=== PATIENT | female | born 1975 | race Caucasian/White ===

== ENCOUNTER → 2018-06-10 | Outpatient (CLI) | payer OTHER ==
--- NOTE | 2018-06-10 17:48 | Diagnostic Imaging Report ---
History: Forget fullness Comparison studies: None Technique: Sagittal T2; axial DWI, FLAIR, MPGR, T1, Coronal FLAIR. Intravenous contrast: None Findings: Scalp: Normal in signal . No masses . Bone marrow: Normal in signal intensity. Extra-axial: No masses or fluid collections. Brain sulci: Appropriate for age. Ventricles: Normal in size . No hydrocephalus . Parenchyma: No abnormal signal intensities. No masses, hemorrhage, acute or chronic cortical ischemic insults. Suprasellar region: No abnormalities. Craniocervical junction: No abnormalities. Patent foramen magnum. No Chiari one malformation. Vessels: Normal flow-voids in the arteries and sinuses. Incidental T2 hyperintense inflammatory changes in several right mastoid air cells. IMPRESSION: No abnormalities. Signed by: Dr. Giancarlo Salomon M.D. on 06/10/2018 5:45 PM
== END ==
LOC: MRI 15:56
PROVIDERS: ATTEND Family Medicine
DX: S09.90XA Unspecified injury of head, initial encounter (principal)
CPT/HCPCS: 70551

== ENCOUNTER 2019-06-09 14:21 | Observation (INO) | payer OTHER ==
[~2019-06-09] VITALS: Ht 157.5 cm; Wt 49.9 kg
--- OUTSIDE RECORDS SUMMARY | 2019-06-09 14:24 | XMS REPORT ---
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 Allergies, Adverse Reactions, Alerts This patient has no known allergies or adverse reactions. Medications This patient has no known medications. Results Test Description Test Time Test Comments Text Results Atomic Results Result Comments MRI BRAIN WO 2018-06-10 17:43:00 [place] [address] Patient Name: RICHA GIBBS MR #: [id number] : 1975 Age/Sex: 42/F Req #: [id number] Adm Physician: Ordered by: GISSELLE DA SILVA DO Report #: [id number] Location: MRI Room/Bed: Procedure: [id number] MRI/MRI BRAIN WO Exam Date: Exam Time: REPORT STATUS: Signed History: Forget fullness Comparison studies: None Technique: Sagittal T2; axial DWI, FLAIR, MPGR, T1, Coronal FLAIR. Intravenous contrast: None Findings: Scalp: Normal in signal . No masses . Bone marrow: Normal in signal intensity. Extra-axial: No masses or fluid collections. Brain sulci: Appropriate for age. Ventricles: Normal in size . No hydrocephalus . Parenchyma: No abnormal signal intensities. No masses, hemorrhage, acute or chronic cortical ischemic insults. Suprasellar region: No abnormalities. Craniocervical junction: No abnormalities. Patent foramen magnum. No Chiari one malformation. Vessels: Normal flow-voids in the arteries and sinuses. Incidental T2 hyperintense inflammatory changes in several right mastoid air cells. IMPRESSION: No abnormalities. Signed by: Dr. Giancarlo Sy M.D. on 06/10/2018 5:45 PM Dictated By: GIANCARLO BARTLETT MD, MD 42 Transcribed By: PORTER on 06/10/181744 COPY TO: GISSELLE DA SILVA DO
[2019-06-09] MEDS ORDERED: ONDANSETRON HCL INJ 2MG/ML 2ML 2 MG/ML VIAL IV STA (14:27)
[2019-06-09] MEDS ORDERED: SODIUM CHLORIDE 0.9% 1000ML 1,000 ML IV STA (14:27)
[2019-06-09] MEDS ORDERED: FAMOTIDINE 20 MG/2 ML VIAL IV STA (14:27)
--- NOTE | 2019-06-09 14:50 | NUR ---
seizure precautions implemented; bedside railings up x 2 and padded; pt educated to press call button if pt seizes
--- NOTE | 2019-06-09 14:51 | NUR ---
aspiration precautions intiated; pt hob elevated 45 degrees suction set up
[2019-06-09] MEDS ORDERED: LEVETIRACETAM 500MG/5ML VIAL 500 MG in SODIUM CHLORIDE 0.9% 100 ML 100 ML IV SCH ×2 (15:00→16:00)
[2019-06-09 15:20] LABS: BILIRUBIN,URINE NEGATIVE (NEGATIVE); CLARITY,URINE SL CLOUDY (CLEAR); COLOR,URINE YELLOW (YELLOW); KETONES,URINE NEGATIVE (NEGATIVE); LEUKOCYTE ESTERASE ,URINE NEGATIVE (NEGATIVE); NITRITE,URINE NEGATIVE (NEGATIVE); PROTEIN,URINE DIPSTICK 2+ (NEGATIVE); URINE UROBILINOGEN 0.2 mg/dL (0.2 - 1)
[2019-06-09 15:25] LABS: BASOPHILS # (AUTO) 0.1 (0.0-0.1); BASOPHILS % 0.4 % (0.0-1.0); EOSINOPHILS # (AUTO) 0.1 (0.0-0.4); EOSINOPHILS % 0.6 % (0.0-6.0); HEMATOCRIT 41.3 % (34.2-44.1); LYMPHOCYTES # (AUTO) 1.6 (1.0-3.2); LYMPHOCYTES % 11.7 % (18.0-39.1); MEAN CORPUSCULAR HGB CONC 33.9 g/dL (31-35); MEAN CORPUSCULAR VOLUME 91.6 fL (81-99); MONOCYTES # (AUTO) 0.8 (0.2-0.8); NEUTROPHILS # (AUTO) 10.8 (2.1-6.9); NEUTROPHILS % 80.9 % (38.7-80.0); PLATELET COUNT 276 x10e3/uL (140-360); RED BLOOD COUNT 4.51 x10e6/uL (3.6-5.1); RED CELL DISTRIBUTION WIDTH 11.5 % (11.7-14.4)
[2019-06-09 15:27] LABS: AMPHETAMINES SCREEN,URINE POSITIVE (NEGATIVE); BENZODIAZEPINES SCREEN,URINE NEGATIVE (NEGATIVE); PHENCYCLIDINE SCREEN,URINE NEGATIVE (NEGATIVE)
[2019-06-09 15:39] LABS: BACTERIA,URINE MANY /HPF; EPITHELIAL CELLS,URINE MANY /LPF; TRANSITIONAL EPI CELLS,URINE MODERATE; WBC,URINE (MAN) 0-5 /HPF (0-5)
[2019-06-09 15:46] LABS: ALANINE AMINOTRANSFERASE 12 IU/L (0-55); ALBUMIN 4.3 g/dL (3.5-5.0); ALBUMIN/GLOBULIN RATIO 1.6 (0.8-2.0); ALKALINE PHOSPHATASE 35 IU/L (40-150); ANION GAP 17.9 mmol/L (8-16); BLOOD UREA NITROGEN 18 mg/dL (7-26); BUN/CREATININE RATIO 19 (6-25); CALCIUM 9.4 mg/dL (8.4-10.2); CARBON DIOXIDE 19 mmol/L (22-29); CHLORIDE 101 mmol/L (98-107); CREATINE KINASE 103 IU/L (29-168); CREATININE, SERUM 0.95 mg/dL (0.57-1.11); EST GLOMERULAR FILTRATION RATE > 60 ML/MIN (60-); GLUCOSE 144 mg/dL (74-118); POTASSIUM 3.9 mmol/L (3.5-5.1); SODIUM 134 mmol/L (136-145)
--- NOTE | 2019-06-09 15:54 | Diagnostic Imaging Report ---
CT BRAIN WO HISTORY: Syncope COMPARISON: MRI of the brain 06/10/2018 TECHNIQUE: Noncontrast axial scans were obtained from skull base to the vertex. Coronal and sagittal reconstructions obtained from the axial data. One or more of the following dose reduction techniques were used: Automated exposure control, adjustment of the mA and/or kV according to patient size, and/or utilization of iterative reconstruction technique. DISCUSSION: Scalp/Skull: Unremarkable. Brain sulci: Appropriate for patient's age. Ventricles: Normal in size and configuration. No hydrocephalus. Extra-axial spaces: No masses or fluid collections. Parenchyma: No abnormal densities. No mass, hemorrhage, or large vascular territory acute infarct. Dural sinuses: No abnormal densities. Sellar/Suprasellar region: Intact. Skull base: Intact. Incidental findings: Trace right mastoid effusion. IMPRESSION: No intracranial abnormalities. Signed by: Dr. Vinny Tucker M.D. on 06/09/2019 3:51 PM
[2019-06-09] MEDS ORDERED: IBUPROFEN 200 MG TAB PO PRN (16:00)
[2019-06-09] MEDS ORDERED: ACETAMINOPHEN 325 MG TAB PO PRN (16:00)
[2019-06-09] MEDS ORDERED: ZOLPIDEM TARTRATE 5 MG TAB PO PRN (16:00)
[2019-06-09] MEDS ORDERED: ONDANSETRON HCL INJ 2MG/ML 2ML 2 MG/ML VIAL IV PRN (16:00)
[2019-06-09] MEDS ORDERED: DIPHENHYDRAMINE HCL INJ 50 MG/ML VIAL IV PRN (16:00)
[2019-06-09] MEDS ORDERED: IBUPROFEN 400 MG TAB PO PRN (16:15)
[2019-06-09 17:00] VITALS: BP 108/61
--- NOTE | 2019-06-09 17:00 | NUR ---
REC'D PT FROM ER WITH A DX OF SEIZURES. PT BROUGHT UP IN STRETCHER. ASPIRATION AND SEIZURE PRECAUTIONS INITIATED. PADDED SIDE RAILS, SIDE RAILS UP X4, AND HOB ELEVATED AT 45 DEGREES. NO S/S OF DISTRESS. IV TO THE RIGHT AC 18 GAUGE INTACT AND PATENT WITHOUT ANY COMPLICATIONS. FLUIDS RUNNING. BED IN LOWEST POSITION AND CALL ARIAS WITHIN REACH. FAMILY AT THE BEDSIDE.
--- NOTE | 2019-06-09 17:10 | NUR ---
BEDSIDE COMMODE PROVIDED AT THE SIDE OF THE BED.
[2019-06-09 17:32] VITALS: BP 108/61
[2019-06-09] MEDS ORDERED: SODIUM CHLORIDE 0.9% 1000ML 1,000 ML ONE (17:50)
[2019-06-09] MEDS: FAMOTIDINE 20 MG/2 ML VIAL IV SCH (17:57)
--- NOTE | 2019-06-09 19:25 | NUR ---
Patient received lying in bed in a semi-leahy position. Patient appeared drowsy. AAO x 3. Family at bedside. Seizure / Aspiration precautions in place. Bed padded on both sides. Patient assisted to BSC; gait unsteady. Patient safely transferred to bed; bed alarm activated. IVF infusing at 125 cc / hr. Telemetry in place---SR @ 83. Patient/ instructed to call for assistance when needed. Call light within reach.
[2019-06-09 20:00] VITALS: BP 108/53
[2019-06-09 20:55] VITALS: BP 108/53
--- NOTE | 2019-06-09 22:25 | NUR ---
Patient complained of headache ( 05/04). Tylenol 650 mg administered per eMAR. Will continue to monitor.
[2019-06-09] MEDS ORDERED: SERTRALINE HCL100 MG PO (22:38)
[2019-06-09] MEDS ORDERED: LISINOPRIL10 MG PO (22:38)
[2019-06-09] MEDS: SODIUM CHLORIDE 0.9% 1000ML 1,000 ML IV SCH (23:58)
[2019-06-10] VITALS (8 sets, daily range): BP systolic 91–131; BP diastolic 53–62
[2019-06-10] MEDS: LEVETIRACETAM 500MG/5ML VIAL 500 MG in SODIUM CHLORIDE 0.9% 100 ML 100 ML IV SCH ×2 (03:10→14:53)
[2019-06-10 06:34] LABS: BASOPHILS % 0.4 % (0.0-1.0); EOSINOPHILS # (AUTO) 0.1 (0.0-0.4); EOSINOPHILS % 1.2 % (0.0-6.0); LYMPHOCYTES # (AUTO) 1.5 (1.0-3.2); LYMPHOCYTES % 22.2 % (18.0-39.1); MEAN CORPUSCULAR HEMOGLOBIN 30.9 pg (28-32); MEAN CORPUSCULAR HGB CONC 33.3 g/dL (31-35); MEAN CORPUSCULAR VOLUME 92.7 fL (81-99); MONOCYTES # (AUTO) 0.6 (0.2-0.8); MONOCYTES % 9.1 % (4.4-11.3); NEUTROPHILS # (AUTO) 4.6 (2.1-6.9); NEUTROPHILS % 66.7 % (38.7-80.0); PLATELET COUNT 173 x10e3/uL (140-360); RED BLOOD COUNT 3.56 x10e6/uL (3.6-5.1); RED CELL DISTRIBUTION WIDTH 11.5 % (11.7-14.4)
[2019-06-10 06:50] LABS: ANION GAP 9.4 mmol/L (8-16); BLOOD UREA NITROGEN 13 mg/dL (7-26); BUN/CREATININE RATIO 19 (6-25); CARBON DIOXIDE 21 mmol/L (22-29); CHLORIDE 111 mmol/L (98-107); CREATININE, SERUM 0.67 mg/dL (0.57-1.11); EST GLOMERULAR FILTRATION RATE > 60 ML/MIN (60-); GLUCOSE 78 mg/dL (74-118); PHOSPHORUS 2.4 MG/DL (2.3-4.7); POTASSIUM 3.4 mmol/L (3.5-5.1); SODIUM 138 mmol/L (136-145)
[2019-06-10] MEDS: FAMOTIDINE 20 MG/2 ML VIAL IV SCH ×2 (08:21→16:58)
[2019-06-10] MEDS: SODIUM CHLORIDE 0.9% 1000ML 1,000 ML IV SCH ×3 (10:55→22:20)
--- NOTE | 2019-06-10 10:55 | NUR ---
PATIENT OFF THE UNIT PER PADDED BED- PATIENT IN STABLE CONDITION WITH NO S/S OF RESPIRATORY DISTRESS. TELEMETRY REMOVED PER ORDER FOR MRI.
--- NOTE | 2019-06-10 13:39 | NUR ---
PATIENT RESTING IN BED. NO SEIZURES NOTED. PADDING APPLIED TO SIDE RAILS AND HOB. PATIENT REMAINS IN STABLE CONDITION WITH NO S/S OF RESPIRATORY DISTRESS. BED ALARM ON. PATIENT'S MOTHER PRESENT AT BEDSIDE.
--- NOTE | 2019-06-10 14:28 | Diagnostic Imaging Report ---
History: Seizures, altered mental status Comparison studies: Head CT 06/09/2019 and brain MRI 06/10/2018. Technique: Sagittal and axial T2, axial DWI, axial T1 FLAIR, axial T2*GRE and axial T2 FLAIR through the whole brain and dedicated coronal T2 and T2 FLAIR sequences through the hippocampi and temporal lobes. Intravenous contrast: None Findings: Several pulse sequences are somewhat limited by artifacts related to patient motion. Scalp: Normal in signal. No masses. Bone marrow: Normal in signal intensity. Brain sulci: Appropriate for age. Ventricles: Normal in size. No hydrocephalus. Extra axial spaces: No mass, no fluid collection. Parenchyma: No abnormal signal intensities. No mass, hemorrhage, acute ischemia chronic cortical insults. The hippocampi appear grossly normal in size and signal intensity. The forniceal columns and mamillary bodies appear symmetric. No gross abnormalities of cortical development/cortical migration. Moreover, evaluation for these abnormalities and for mesial temporal sclerosis are somewhat limited in the absence of a high resolution 3-D T1 sequence through the brain and high-resolution T2/T2 flair sequence through the hippocampi and temporal lobes. Suprasellar region: No abnormalities. Craniocervical junction: Patent foramen magnum. No Chiari malformation. Vessels: Normal flow-voids in the arteries and sinuses. Incidental findings: Unchanged chronic T2 hyperintense inflammatory changes at the mastoid tip. IMPRESSION: 1. Exam limited by motion artifacts. 2. No gross intracranial abnormalities or changes from the prior brain MRI of 06/10/2018. If there remains persistent concern for seizure, 3 Alessia magnetic field strength brain MRI with seizure protocol could be considered to further evaluate. Given degree of motion artifacts, future MRI under sedation could also be considered. Signed by: Dr. Michael Barbosa M.D. on 06/10/2019 2:25 PM
--- NOTE | 2019-06-10 14:28 | NUR ---
CALL PLACED OUT TO Belkys MOY REGARDING PATIENT'S HOME MEDICATIONS- AWAITING CALLBACK.
[2019-06-10] MEDS ORDERED: LABETALOL HCL 5 MG/ML 20ML VIAL IV PRN (14:45)
[2019-06-10] MEDS: SERTRALINE HCL 100 MG TAB PO SCH (14:48)
--- NOTE | 2019-06-10 19:10 | NUR ---
PT IS RESTING IN BED WITH FAMILY AT BEDSIDE. RESPIRATION IS EVEN AND UNLABORED, NO DISTRESS NOTED. BED IN THE LOWEST POSITION, LOCKED, AND CALL LIGHT WITHIN REACH. WILL CONTINUE TO MONITOR.
--- NOTE | 2019-06-10 19:17 | NUR ---
PATIENT RESTING IN BED- IN STABLE CONDITION WITH NO S/S OF RESPIRATORY DISTRESS. NO PAIN VOICED. IV FLUIDS INFUSING. FAMILY MEMBERS PRESENT IN ROOM. BED ALARM ON. CALL LIGHT IS WITHIN REACH, PATIENT INSTRUCTED TO CALL FOR ASSISTANCE NEEDED. BEDSIDE REPORT GIVEN TO ONCOMING NURSE.
[2019-06-11] VITALS: BP 109/55
--- NOTE | 2019-06-11 00:33 | Consultation ---
DATE OF CONSULTATION: 06/10/2019 Neurology Consult Note HISTORY OF PRESENT ILLNESS: Ms. Suárez is a 43-year-old right-hand dominant woman with past medical history significant for hypertension and mixed depression/anxiety disorder, admitted to [facility] on June 09, 2019, with seizure-like activity. Majority of the history of present illness is obtained from the patient's , who witnessed the first seizure. At approximately 0930 hours on June 09, 2019, the patient's received a text from his daughter stating Ms. Suárez was having a seizure. The patient's returned home within less than a minute and found his lying on the couch, unresponsive. Her eyes were closed. There was no head version. The patient's arms were crossed over her chest and the legs were extended. The patient's reports Ms. Suárez's body was stiff and rigid. There was blood over the left side of her face from the patient biting her tongue. There was no bladder or bowel incontinence. The patient's estimates the tonic activity persisted for approximately 1 to 2 minutes. Ms. Suárez remained unresponsive for approximately 4 to 5 minutes. When she did become responsive, the patient seemed mildly disoriented and tired. Her helped her to the bedroom, where the patient laid down and fell asleep. At approximately 1338 hours on June 09, 2019, the patient's was once again notified by his daughter that Ms. Suárez was experiencing another seizure. The patient's returned home within 5 minutes. By the time he returned home, the patient was no longer having a seizure. According to the patient's daughter, the seizure was similar to the first seizure occurring earlier the same day. The patient's helped her to the car and brought her to the emergency center at [facility] for further evaluation of her symptoms. Upon arrival in the emergency center, the patient was afebrile with a blood pressure of 112/59 mmHg and a pulse of 100 beats per minute. Her neurological examination was significant for altered mental status and decreased level of alertness. Otherwise, there were no deficits noted. While in the emergency center, routine blood and urine studies were obtained. Significant findings include a urine toxicology positive for amphetamines and cannabinoids. A CT of the brain without contrast was performed, while the patient was in the emergency center. This study did not reveal evidence of recent large territorial ischemia or hemorrhage. Ms. Suárez was then admitted to [facility] under observation status for further evaluation and treatment of her symptoms. There is no personal history of febrile seizures or other seizures. There is no known family history of seizures. The patient's does report a prior history of head trauma. Approximately 1 year ago, Ms. Suárez fell asleep on the couch in the living room. In the middle of the night, her was awakened by "a great commotion." When he came into the living room, the coffee table was pushed away from the couch, a glass of water had spilled on the floor, and Ms. Suárez was lying on the floor, days, with a blanket wrapped around her legs. Neither the patient nor her can say whether or not Ms. Suárez hit any part of her body on the coffee table or on the concrete floor. The patient remembers having a bruise around her left eye. Her states there may have been some bruising on an arm or a leg. He does remember the patient split her lip as a result of the fall. There was no reported prior history of meningitis or encephalitis. When questions about the positive results of the urine drug screen, Ms. Suárez reports taking a dose of her 's Adderall on the morning of admission because she felt tired. REVIEW OF SYSTEMS: Seizures. PAST MEDICAL HISTORY: Hypertension and depression/anxiety disorder. PAST SURGICAL HISTORY: Breast augmentation, partial hysterectomy, and tonsillectomy. PAST HOSPITALIZATIONS: Surgeries/procedures as listed, childbirth x2. FAMILY MEDICAL HISTORY: Hypertension. SOCIAL HISTORY: Ms. Suárez is . 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 The patient does not report current or prior tobacco use. She endorses occasional alcohol use. The patient reports semi-regular marijuana use. As noted in the history of present illness, the patient did take a dose of her 's Adderall on the morning of June 09, 2019. HOME MEDICATIONS: Lisinopril 20 mg by mouth daily and sertraline 100 mg by mouth daily. HOSPITAL MEDICATIONS: Tylenol, Benadryl, Pepcid, Motrin, Trandate, Zofran, Zoloft, and Ambien. ALLERGIES: SULFA. NO KNOWN FOOD ALLERGIES. NO KNOWN ALLERGIES TO LATEX. NO KNOWN ALLERGIES TO IODINE OR OTHER CONTRAST MATERIALS. PHYSICAL EXAMINATION: VITAL SIGNS: Height 62 inches, weight 110 pounds, BMI 20.1 kg/m2, blood pressure 104/62 mmHg, pulse 78 beats per minute, respiratory rate 16 breaths per minute, and oxygen saturation 97% on room air. GENERAL: The patient is awake and alert, does not appear distressed. HEENT: Normocephalic and atraumatic. Pupils are equal, round, and reactive to light. Moist mucous membranes. NECK: Supple. No appreciable thyromegaly. No appreciable carotid bruits. CARDIOVASCULAR: S1, S2, regular rate and rhythm. No murmurs, rubs, or gallops. RESPIRATORY: Clear to auscultation bilaterally. No wheezes, rhonchi, or rales. EXTREMITIES: The skin is warm and dry. No clubbing, cyanosis, or edema. The posterior tibial and dorsalis pedis pulses are 2+ and symmetric. SKIN: No rashes or lesions. NEUROLOGIC: Memory/Attention: The patient is awake and alert, oriented to person, place, time, and situation. Cranial Nerves: Cranial nerve I - not tested. Cranial nerves II, III, IV, and - pupils are equal and round, react briskly to light (from 4 mm to 2 mm). Extraocular movements intact. No nystagmus. Cranial nerve V - sensation to light touch and pinprick is intact in the bilateral V1 through V3 distributions. Strength in the temporalis and masseter muscles are within normal limits. Cranial nerve VII - the face is symmetric as are all facial movements. Strength is within normal limits. Cranial nerve VIII - hearing is intact to finger rub bilaterally. Cranial nerves IX, X - the soft palate elevates equally and symmetrically. Cranial nerve XI - normal strength of the bilateral sternocleidomastoid and trapezius muscles. Cranial nerve XII - the tongue protrudes midline and moves symmetrically from [id number]. Strength: Bulk is normal. Strength is 5/5 in the bilateral deltoids, biceps, triceps, wrist flexors and extensors, finger flexors and extensors, intrinsic hand muscles, hip flexors, knee flexors and extensors, ankle dorsiflexion and plantar flexion, and intrinsic foot muscles. Tone is normal. DTRs: Deep tendon reflexes are 2+ and symmetric at the triceps, biceps, brachioradialis, patellas, and Achilles. Plantar responses are flexor bilaterally. Sensation: Sensation is intact to light touch and pinprick in both arms and both legs. Cerebellar: Tnvrra-hnpn-zokkua and heel-gillis movements are intact without dysmetria or other impairment. Gait: Deferred. Speech: Spontaneous speech is normal without appreciable dysarthria or aphasia. Repetition is intact. Involuntary Movements: None. Pronator Drift: None. LABORATORY DATA: The most recent basic metabolic panel is significant for potassium of 3.4, chloride of 111, carbon dioxide of 21, and calcium of 8.0. A liver function panel drawn on June 09, 2019, is unremarkable. Cardiac enzymes are negative x1. The CBC with differential and platelets reveals a white blood cell count of 6.94 with a normal differential. The hemoglobin and hematocrit are 11.0 and 33.0, respectively. The platelet count is 173. A urinalysis revealed slightly cloudy urine with 2+ protein, moderate urine transitional epithelial cells, many urine epithelial cells, many urine bacteria, and 2-5 hyaline casts. A urine drug screen was positive for amphetamines and cannabinoids. DIAGNOSTIC STUDIES: Electrocardiogram on 06/09/2019: Sinus rhythm at 89 beats per minute with a shortened SD interval. Right atrial enlargement. CT of the brain without contrast on 06/09/2019: On my review, there is no evidence of recent or remote large territorial ischemia, hemorrhage, mass, or mass effect. Cerebral volumes are appropriate for age. There are no findings suspicious for chronic small-vessel ischemic disease. MRI of the brain without contrast on 06/10/2019: On my review, there is no evidence of recent or remote large territorial ischemia, hemorrhage, mass, or mass effect. Cerebral volumes are appropriate for age. There are no migrational anomalies. There is no evidence of mesial temporal sclerosis. There are no findings of chronic small vessel ischemic disease. Of note, the MR images are somewhat degraded by motion artifact. ASSESSMENT AND PLAN: Ms. Suárez is a 43-year-old right-hand dominant woman with past medical history significant for hypertension and mixed depression/anxiety disorder, admitted to [facility] on June 09, 2019, status post two seizures with the urine drug screen positive for amphetamines. The patient's neurological examination is nonfocal at present. Ms. Suárez's laboratory data and other diagnostic studies have been reviewed and are documented above. Due to the presence of amphetamines on the urine drug screen, it is probable the patient's recent seizure activity was triggered by the use of the stimulant. The diagnosis of epilepsy is possible, but unlikely. RECOMMENDATIONS: Are as follows: 1. A routine EEG will be ordered to evaluate for abnormal electrocortical activity. 2. As I strongly suspect seizure activity secondary to amphetamine use, treatment with Keppra will be discontinued. 3. Seizure precautions will be continued. 4. Defer treatment of the remaining medical comorbidities to the primary and other services following the patient. Thank you for this consultation. I will continue to follow the patient, while she remains in the hospital. TIME SPENT: 50 minutes. Brunilda Thompson MD CP/MODL /[id number] MTDD
[2019-06-11 04:00] VITALS: BP 99/56
[2019-06-11] MEDS: SODIUM CHLORIDE 0.9% 1000ML 1,000 ML IV SCH ×2 (06:02→14:01)
--- NOTE | 2019-06-11 07:20 | NUR ---
PATIENT IN STABLE CONDITION WITH NO S/S OF RESPIRATORY DISTRESS. NO PAIN VOICED. IV FLUIDS INFUSING. BED ALARM APPLIED. PRESENT IN ROOM. CALL LIGHT IS WITHIN REACH, PATIENT INSTRUCTED TO CALL FOR ASSISTANCE NEEDED.
[2019-06-11 07:47] VITALS: BP 123/66
[2019-06-11] MEDS: SERTRALINE HCL 100 MG TAB PO SCH (08:21)
[2019-06-11] MEDS: FAMOTIDINE 20 MG/2 ML VIAL IV SCH ×2 (08:21→16:07)
[2019-06-11 09:27] VITALS: BP 123/66
[2019-06-11 11:12] VITALS: BP 110/53
[2019-06-11 15:20] VITALS: BP 111/59
--- NOTE | 2019-06-11 15:54 | NUR ---
PT CLEARED BY DR BROCK FOR DC CM CALLED AND NOTIFIED DR Saira MOY HE STATES HE WILL BE HERE THIS AFTERNOON TO SEE PT AND DISCHARGE WILL F/U WITH UA CX OP P.T. TO DO EVAL TODAY STILL
--- NOTE | 2019-06-11 17:07 | Electroencephalogram ---
DATE OF STUDY: 06/11/2019 REQUESTING PHYSICIAN: REQUESTING PHYSICIAN: Dr. Brunilda Thompson. PATIENT HISTORY: This 43-year-old woman admitted with two seizures is having an EEG for evaluation of epileptiform activity. The patient is not taking any medications which might affect the EEG. TECHNIQUE: This is a routine, portable EEG, recorded digitally, using the International 10/20 electrode placement system, and done in the inpatient setting with the patient awake and drowsy. The EEG is adequate for interpretation. DESCRIPTION: Well-organized, well-sustained, 8-9 hertz activity is best seen symmetrically over the posterior head regions. No focal or epileptiform activity is recorded. Sleep is not recorded. Photic stimulation produces a driving response. Hyperventilation is not performed. INTERPRETATION: This EEG is normal with the patient awake and drowsy. No epileptiform discharges are seen. Clinical correlation is recommended. Brunilda Thompson MD CP/ANUPAM /[id number] MTDD
--- NOTE | 2019-06-11 19:15 | NUR ---
PATIENT DISCHARGE HOME- PATIENT OFF THE UNIT AT 1839 PER WHEELCHAIR ACCOMPANIED BY RN TO THE FRONT LOBBY. PATIENT IN STABLE CONDITION WITH NO S/S OF RESPIRATORY DISTRESS. NO PAIN VOICED. IV REMOVED WITH TIP INTACT. DISCHARGE TEACHING AND INSTRUCTIONS GIVEN TO THE PATIENT. ALL PERSONAL ITEMS TAKEN WITH THE PATIENT.
--- NOTE | 2019-07-12 16:43 | Discharge Summary ---
CHIEF COMPLAINT: Status post syncope. FINAL DIAGNOSIS: Syncope related to consumption of amphetamine. HOSPITAL COURSE: A 43-year-old female presents to the emergency room after having two syncopal episodes, which occurred on the date of admission, has recovered from these episodes. She states that these issues abrupt in onset and has been waxing and waning. The event was witnessed. Preceding the event, the patient had symptoms of lightheadedness, nausea, abdominal pain, felt faint, loss of consciousness, and collapsed. Seizure activity was observed. Did not lose pulse, now related to orthostatic event. She underwent review and evaluation in the emergency room. Admission was made for treatment regarding new onset of generalized seizure associated with head trauma and drugs. No status epilepticus or history of epilepsy, possible postictal state. The patient was admitted to the facility. Underwent neurological evaluation by Dr. Thompson and following up her extensive review evaluation. She feels that the presence of the seizures were related to amphetamines, which were showing in her urine drug screen. However, the diagnosis of epilepsy is possible, but unlikely. We will be scheduling the EEG. Strongly suspect seizure activity secondary to amphetamine use. Treatment with Keppra will be was discontinued. Seizure precautions will be continued. Continue to manage closely. She is able to be discharged home in stable and guarded condition. IMAGING: CT brain shows no intracranial abnormalities. Brain MRI, no gross intracranial abnormalities or changes when compared to MRI on 06/10/2018. Urine cultures were negative. LABORATORY STUDIES: Shows a CBC; initial white cell count elevated at 13,300; followup white cell count was normal. Initial H and H are 14.0 and 41.3; followup H and H are 11.0 and 33.0. Urinalysis was showing 2+ protein, many bacteria. Urine drug screen was showing positive for amphetamines as well as cannabinoids. Chemistry panel unremarkable. The patient recovered quickly, was cleared for discharge by Neurology. The patient was released home, stable, but guarded condition. With discharge, she will continue on her current diet. No equipments or supplies are necessary. Activity level as directed by myself as well as by Dr. Thompson. Followup care, she will be returning to her PCP within 7 to 10 days. She will be continued on lisinopril 20 mg p.o. daily, sertraline 100 mg p.o. daily. It was discussed with the patient the importance of abstaining from the amphetamines as well as the cannabinoids. Dictated by SOHAN Buchanan David Lieberman MD CC/MODL /[id number]
== END 2019-06-11 18:39 | disposition home or self-care (01) ==
LOC: ER 14:21 → ERHOLD 15:58 → MED/SURG3 17:04
DX: R56.9 Unspecified convulsions (principal); I10 Essential (primary) hypertension; F41.9 Anxiety disorder, unspecified; F15.90 Other stimulant use, unspecified, uncomplicated; R41.82 Altered mental status, unspecified; S00.12XA Contusion of left eyelid and periocular area, initial encounter
CPT/HCPCS: 36415 ×2; 70450; 70551; 80048; 80053; 80307; 81001; 82550; 82553; 83735; 84100; 84484; 85025 ×2; 87086; 93005; 95812; 95816; 97139 ×2; 99284; G0378 ×3; J1953 ×2; J2405; J7030 ×3